=== PATIENT | female | born 1975 | race Caucasian/White ===

== ENCOUNTER 2021-12-05 22:01 | Emergency (ER) | payer BC ==
[2021-12-05 23:04] VITALS: TEMP 98
[2021-12-06] MEDS ORDERED: DIPH,PERTUS(ACELL)TETVAC-LF 0.5 ML VIAL IM ONE (02:50)
[2021-12-06] MEDS ORDERED: IBUPROFEN 600 MG TAB PO STA (02:50)
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
[2021-12-06 03:58] VITALS: BP 141/82; PULSE 52; RESP 16
== END 2021-12-06 03:58 | disposition home or self-care (01) ==
LOC: EC 22:01
DX: T24.202A Burn of second degree of unspecified site of left lower limb, except ankle and foot, initial encounter (principal); T24.201A Burn of second degree of unspecified site of right lower limb, except ankle and foot, initial encounter; Z23 Encounter for immunization; X08.8XXA Exposure to other specified smoke, fire and flames, initial encounter
CPT/HCPCS: 90471; 90715; 99283